=== PATIENT | female | born 1945 | race Asian ===

== ENCOUNTER 2018-07-11 08:35 | Emergency (ER) | payer OTHER ==
[~2018-07-11] VITALS: Ht 154.9 cm; Wt 63.5 kg
[2018-07-11 08:41] VITALS: Ht 154.9 cm; Wt 63.5 kg
[2018-07-11 09:28] LABS: BASOPHIL % 0.7 % (0-2); PLATELET COUNT 208 x10^3mcL (130-400); RED CELL DISTRIBUTION WIDTH 12.8 % (11.5-14.5)
[2018-07-11] MEDS ORDERED: BUSPIRONE HCL10 MG PO (09:33)
[2018-07-11] MEDS ORDERED: TOP50 PO (09:34)
[2018-07-11] MEDS ORDERED: PLA75 PO (09:35)
[2018-07-11] MEDS ORDERED: TRADJENTA5 M1 PO (09:35)
[2018-07-11] MEDS ORDERED: PRILOSEC OTC20 M1 PO (09:36)
[2018-07-11] MEDS ORDERED: ISOSORBIDE DINI30 M2 PO (09:36)
[2018-07-11 09:38] LABS: CARBON DIOXIDE 24.2 mmol/L (21-32); CHLORIDE SERUM 107 mmol/L (98-107); GLUCOSE SERUM 156 mg/dL (74-106); POTASSIUM SERUM 3.2 mmol/L (3.5-5.1); SODIUM SERUM 145 mmol/L (136-145)
[2018-07-11] MEDS ORDERED: TOPROL XL25 MG PO (09:38)
[2018-07-11] MEDS ORDERED: PAXIL PO (09:40)
[2018-07-11] MEDS ORDERED: GLUCOPHAGE XR500 MG PO (09:40)
[2018-07-11] MEDS ORDERED: LOSARTAN POTASS50 M1 PO (09:41)
[2018-07-11] MEDS ORDERED: DOK COLACE100 MG PO (09:41)
[2018-07-11] MEDS ORDERED: CLONAZEPAM1 MG PO (09:42)
[2018-07-11] MEDS ORDERED: BAYER ASPIRIN R81 MG PO (09:42)
[2018-07-11 09:43] LABS: ALBUMIN 3.8 g/dL (3.4-5.0); ALKALINE PHOSPHATASE 77 U/L (46-116); ALT/SGPT 21 U/L (14-59); AST/SGOT 19 U/L (15-37); BILIRUBIN TOTAL 0.53 mg/dL (0.20-1.00); TOTAL PROTEIN, SERUM 7.4 g/dL (6.4-8.2)
[2018-07-11] MEDS ORDERED: NITROGLYCERIN0.4 MG SL (09:44)
[2018-07-11] MEDS ORDERED: APAP500 MG PO (09:44)
[2018-07-11] MEDS ORDERED: ESTROVEN PO (09:46)
[2018-07-11] MEDS ORDERED: CENTRUM SILVER1 EAC3 PO (09:46)
[2018-07-11] MEDS ORDERED: B12 PO (09:47)
[2018-07-11] MEDS ORDERED: FOCUS FACTOR (09:48)
[2018-07-11] MEDS ORDERED: COLLAGEN PO (09:49)
[2018-07-11] MEDS ORDERED: MEGARED OMEGA (09:49)
[2018-07-11] MEDS ORDERED: GLUCOSAMINE & C1 CA3 PO (09:50)
[2018-07-11 14:18] VITALS: BP 149/79
== END 2018-07-11 14:48 | disposition home or self-care (01) ==
LOC: ED 08:35
PROVIDERS: Emergency Medicine
DX: R19.7 Diarrhea, unspecified (principal); R10.84 Generalized abdominal pain; I10 Essential (primary) hypertension; E11.9 Type 2 diabetes mellitus without complications; E78.00 Pure hypercholesterolemia, unspecified; K21.9 Gastro-esophageal reflux disease without esophagitis
CPT/HCPCS: 36415; J2405; Q0092

== ENCOUNTER 2018-08-10 23:18 | Inpatient (IN) | payer OTHER ==
[~2018-08-10] VITALS: Ht 154.9 cm; Wt 61.7 kg
[~2018-08-10 23:18] MED LIST: APAP500 MG PO; B12 PO; BAYER ASPIRIN R81 MG PO; BUSPIRONE HCL10 MG PO; CENTRUM SILVER1 EAC3 PO; CLONAZEPAM1 MG PO; COLLAGEN PO; DOK COLACE100 MG PO; ESTROVEN PO; FOCUS FACTOR; GLUCOPHAGE XR500 MG PO; GLUCOSAMINE & C1 CA3 PO; ISOSORBIDE DINI30 M2 PO; LOSARTAN POTASS50 M1 PO; MEGARED OMEGA; NITROGLYCERIN0.4 MG SL; PAXIL PO; PLA75 PO; PRILOSEC OTC20 M1 PO; TOP50 PO; TOPROL XL25 MG PO; TRADJENTA5 M1 PO
[2018-08-11] VITALS (8 sets, daily range): BP systolic 127–168; BP diastolic 49–68
[2018-08-11 00:45] LABS: BASOPHIL % 0.1 % (0-2); PLATELET COUNT 223 x10^3mcL (130-400); RED CELL DISTRIBUTION WIDTH 12.8 % (11.5-14.5)
[2018-08-11 00:54] LABS: CALCIUM 8.5 mg/dL (8.5-10.1); CARBON DIOXIDE 28.5 mmol/L (21-32); CHLORIDE SERUM 94 mmol/L (98-107); GLUCOSE SERUM 204 mg/dL (74-106); POTASSIUM SERUM 3.9 mmol/L (3.5-5.1); SODIUM SERUM 133 mmol/L (136-145)
[2018-08-11 00:59] LABS: ALBUMIN 3.6 g/dL (3.4-5.0); ALKALINE PHOSPHATASE 63 U/L (46-116); ALT/SGPT 20 U/L (14-59); AST/SGOT 17 U/L (15-37); BILIRUBIN TOTAL 0.5 mg/dL (0.20-1.00); TOTAL PROTEIN, SERUM 6.8 g/dL (6.4-8.2)
[2018-08-11 01:02] LABS: T3 TOTAL 1.05 ng/mL
[2018-08-11 01:03] LABS: FREE T4 1.37 ng/dL (0.76-1.46); FREE THYROXINE INDEX 3.4 ug/dL (1.4-4.5); T4(THYROXINE) 9.5 ug/dL (4.7-13.3)
[2018-08-11 01:13] LABS: MAGNESIUM 0.9 mg/dL (1.8-2.4)
[2018-08-11] MEDS ORDERED: COLACE100 MG PO (01:44)
[2018-08-11] MEDS ORDERED: TRADJENTA5 M1 PO (01:44)
[2018-08-11] MEDS ORDERED: DIO160 PO (01:45)
[2018-08-11] MEDS ORDERED: LIPITOR80 MG PO (01:45)
[2018-08-11 02:24] LABS: CHOLESTEROL/HDL RATIO 3.7
[2018-08-11 02:50] LABS: microscopic required? NO
[2018-08-11 03:05] LABS: UA SPECIFIC GRAVITY 1.015 (1.005-1.035); urine erythrocyte NEGATIVE (NEGATIVE)
[2018-08-11 03:13] LABS: AMPHETAMINE QUAL UR NONE DETECTED (See below)
[2018-08-11 06:09] LABS: BASOPHIL % 0.8 % (0-2); PLATELET COUNT 224 x10^3mcL (130-400); RED CELL DISTRIBUTION WIDTH 12.9 % (11.5-14.5)
[2018-08-11 06:25] LABS: CALCIUM 8.7 mg/dL (8.5-10.1); CHLORIDE SERUM 93 mmol/L (98-107); CREATININE SERUM 0.7 mg/dL (0.6-1.0); GLUCOSE SERUM 147 mg/dL (74-106); MAGNESIUM 1.8 mg/dL (1.8-2.4); PHOSPHOROUS 3.3 mg/dL (2.5-4.9); POTASSIUM SERUM 3.5 mmol/L (3.5-5.1); SODIUM SERUM 128 mmol/L (136-145)
[2018-08-12 06:10] LABS: BASOPHIL % 0.2 % (0-2); PLATELET COUNT 221 x10^3mcL (130-400); RED CELL DISTRIBUTION WIDTH 12.1 % (11.5-14.5)
[2018-08-12 06:13] LABS: CALCIUM 8.1 mg/dL (8.5-10.1); CARBON DIOXIDE 22.6 mmol/L (21-32); CHLORIDE SERUM 83 mmol/L (98-107); CREATININE SERUM 0.7 mg/dL (0.6-1.0); GLUCOSE SERUM 167 mg/dL (74-106); POTASSIUM SERUM 3.2 mmol/L (3.5-5.1)
[2018-08-12 06:24] VITALS: BP 124/50
[2018-08-12 06:57] LABS: SODIUM SERUM 120 mmol/L (136-145)
[2018-08-12 07:26] VITALS: BP 158/55
[2018-08-12 12:51] VITALS: BP 123/57
[2018-08-12 12:53] VITALS: BP 131/59
[2018-08-12 14:46] LABS: CALCIUM 7.7 mg/dL (8.5-10.1); CARBON DIOXIDE 21.3 mmol/L (21-32); CHLORIDE SERUM 86 mmol/L (98-107); CREATININE SERUM 0.7 mg/dL (0.6-1.0); GLUCOSE SERUM 188 mg/dL (74-106); POTASSIUM SERUM 3.3 mmol/L (3.5-5.1)
[2018-08-12 14:56] LABS: SODIUM SERUM 121 mmol/L (136-145)
[2018-08-12 15:11] LABS: CREATININE UR 37.5 mg/dL
[2018-08-12 16:35] VITALS: BP 131/54
[2018-08-12 17:11] LABS: CARBON DIOXIDE 22.5 mmol/L (21-32); CHLORIDE SERUM 90 mmol/L (98-107); CREATININE SERUM 0.7 mg/dL (0.6-1.0); GLUCOSE SERUM 152 mg/dL (74-106); POTASSIUM SERUM 3.8 mmol/L (3.5-5.1)
[2018-08-12 17:15] LABS: SODIUM SERUM 122 mmol/L (136-145)
[2018-08-12 19:43] VITALS: BP 122/54
[2018-08-12 23:21] VITALS: Ht 154.9 cm; Wt 61.7 kg
[2018-08-13 05:01] VITALS: BP 149/59
[2018-08-13 06:28] LABS: CALCIUM 8.8 mg/dL (8.5-10.1); CARBON DIOXIDE 23.4 mmol/L (21-32); CHLORIDE SERUM 105 mmol/L (98-107); CREATININE SERUM 0.8 mg/dL (0.6-1.0); GLUCOSE SERUM 148 mg/dL (74-106); POTASSIUM SERUM 3.5 mmol/L (3.5-5.1); SODIUM SERUM 141 mmol/L (136-145)
[2018-08-13 08:30] VITALS: BP 125/57
[2018-08-13 16:04] VITALS: BP 152/67
[2018-08-14 06:12] VITALS: BP 146/67
[2018-08-14 06:38] LABS: CALCIUM 8.4 mg/dL (8.5-10.1); CARBON DIOXIDE 28.1 mmol/L (21-32); CHLORIDE SERUM 104 mmol/L (98-107); CREATININE SERUM 0.7 mg/dL (0.6-1.0); GLUCOSE SERUM 166 mg/dL (74-106); POTASSIUM SERUM 3.4 mmol/L (3.5-5.1); SODIUM SERUM 141 mmol/L (136-145)
[2018-08-14 06:49] LABS: BASOPHIL % 0.4 % (0-2); PLATELET COUNT 223 x10^3mcL (130-400); RED CELL DISTRIBUTION WIDTH 13.2 % (11.5-14.5)
[2018-08-14 08:37] VITALS: BP 137/59
[2018-08-14 12:14] VITALS: BP 121/63
[2018-08-14 17:39] VITALS: BP 120/49
[2018-08-14 20:28] VITALS: BP 119/60
[2018-08-15 05:55] VITALS: BP 150/52
[2018-08-15 09:10] VITALS: BP 130/49
[2018-08-15 12:48] VITALS: BP 151/72
[2018-08-15 14:14] VITALS: BP 151/72
== END 2018-08-15 16:25 | DRG 918 ==
LOC: ED 23:18 → MU 08-11 01:19 → DU 08-11 01:19 → MU 08-11 10:13 → DU 08-12 10:00
PROVIDERS: Emergency Medicine; Internal Medicine; Nurse Practitioner Family; ADMIT Internal Medicine
DX: T46.5X1A Poisoning by other antihypertensive drugs, accidental (unintentional), initial encounter (principal); E87.1 Hypo-osmolality and hyponatremia; E11.65 Type 2 diabetes mellitus with hyperglycemia; R00.2 Palpitations; E83.42 Hypomagnesemia; K21.9 Gastro-esophageal reflux disease without esophagitis; I11.9 Hypertensive heart disease without heart failure; I25.10 Atherosclerotic heart disease of native coronary artery without angina pectoris; E78.5 Hyperlipidemia, unspecified; F41.8 Other specified anxiety disorders; Z68.25 Body mass index [BMI] 25.0-25.9, adult; Z95.1 Presence of aortocoronary bypass graft; Z79.02 Long term (current) use of antithrombotics/antiplatelets; Z79.82 Long term (current) use of aspirin; Z79.84 Long term (current) use of oral hypoglycemic drugs; Y92.018 Other place in single-family (private) house as the place of occurrence of the external cause
CPT/HCPCS: 82962; 84439; 97116-GP; 97530-GP; G0378; J1815; J2060; J2405; J3475; J3480; J7030; J7070; Q0092